=== PATIENT | male | born 1950 | race Asian ===

== ENCOUNTER 2016-10-30 00:57 | Inpatient (IN) | payer OTHER ==
[~2016-10-30] VITALS: Ht 165.1 cm; Wt 79.4 kg
[2016-10-30 01:58] LABS: BASOPHIL % 0.5 % (0-2); PLATELET COUNT 218 x10^3mcL (130-400); RED CELL DISTRIBUTION WIDTH 13.3 % (11.5-14.5)
[2016-10-30 02:13] LABS: CALCIUM 8.5 mg/dL (8.5-10.1); CARBON DIOXIDE 22.8 mmol/L (21-32); CHLORIDE SERUM 106 mmol/L (98-107); CREATININE SERUM 1.2 mg/dL (0.7-1.3); GFR1 > 60 mL/min; GLUCOSE SERUM 134 mg/dL (74-106); POTASSIUM SERUM 3.5 mmol/L (3.5-5.1); SODIUM SERUM 140 mmol/L (136-145)
[2016-10-30 02:17] LABS: ALBUMIN 3.4 g/dL (3.4-5.0); ALKALINE PHOSPHATASE 71 U/L (46-116); ALT/SGPT 41 U/L (16-63); AST/SGOT 26 U/L (15-37); BILIRUBIN TOTAL 0.26 mg/dL (0.20-1.00)
[2016-10-30] MEDS ORDERED: TAMSULOSIN HYD0.4 M1 PO (03:05)
[2016-10-30] MEDS ORDERED: [UNRECOGNIZED DRUG - CODE] PO (03:05)
[2016-10-30] MEDS ORDERED: ENALAPRIL MALEA20 MG PO (03:06)
[2016-10-30] MEDS ORDERED: SIMVASTATIN20 M1 PO (03:06)
[2016-10-30] MEDS ORDERED: ASPIR 8181 MG PO (03:07)
[2016-10-30 03:44] VITALS: BP 180/76
[2016-10-30 04:41] LABS: FREE T4 1.25 ng/dL (0.76-1.46); FREE THYROXINE INDEX 2.9 ug/dL (1.4-4.5); T4(THYROXINE) 8.1 ug/dL (4.7-13.3)
[2016-10-30 04:46] LABS: T3 TOTAL 1.24 ng/mL
[2016-10-30 04:53] LABS: CHOLESTEROL/HDL RATIO 2.3
[2016-10-30 07:07] VITALS: BP 180/60
[2016-10-30 08:47] VITALS: Ht 165.1 cm; Wt 79.4 kg
[2016-10-30 09:24] LABS: microscopic required? YES; urine erythrocyte TRACE (NEGATIVE)
[2016-10-30 09:27] LABS: AMPHETAMINE QUAL UR NONE DETECTED (NEG <=1000)
[2016-10-30 09:47] LABS: MAGNESIUM 2.1 mg/dL (1.8-2.4); PHOSPHOROUS 2.3 mg/dL (2.5-4.9)
[2016-10-30 09:56] VITALS: BP 136/68
[2016-10-30 14:00] VITALS: BP 129/71
[2016-10-30 18:41] VITALS: BP 123/69
[2016-10-30 21:44] VITALS: BP 151/76
[2016-10-31 06:06] VITALS: BP 140/74
[2016-10-31 06:17] LABS: BASOPHIL % 0.4 % (0-2); PLATELET COUNT 210 x10^3mcL (130-400); RED CELL DISTRIBUTION WIDTH 13.3 % (11.5-14.5)
[2016-10-31 06:35] LABS: CALCIUM 8.4 mg/dL (8.5-10.1); CARBON DIOXIDE 26.7 mmol/L (21-32); CHLORIDE SERUM 110 mmol/L (98-107); GFR1 > 60 mL/min; GLUCOSE SERUM 97 mg/dL (74-106); MAGNESIUM 1.9 mg/dL (1.8-2.4); PHOSPHOROUS 2.7 mg/dL (2.5-4.9); POTASSIUM SERUM 3.7 mmol/L (3.5-5.1); SODIUM SERUM 143 mmol/L (136-145)
[2016-10-31 09:57] VITALS: BP 149/82
[2016-10-31 11:35] VITALS: BP 149/82
[2016-10-31] MEDS ORDERED: MECLIZINE HCL12.5 MG PO (12:01)
[2016-10-31] MEDS ORDERED: ZOF4 PO (12:02)
== END 2016-10-31 14:42 | disposition home or self-care (01) | DRG 48 ==
LOC: ED 00:57 → DU 02:48
PROVIDERS: Emergency Medicine; ADMIT Family Medicine
DX: G90.9 Disorder of the autonomic nervous system, unspecified (principal); N17.0 Acute kidney failure with tubular necrosis; I10 Essential (primary) hypertension; E78.00 Pure hypercholesterolemia, unspecified; N40.0 Benign prostatic hyperplasia without lower urinary tract symptoms; Z53.29 Procedure and treatment not carried out because of patient's decision for other reasons; I16.0 Hypertensive urgency; E87.8 Other disorders of electrolyte and fluid balance, not elsewhere classified; D64.9 Anemia, unspecified; Z79.82 Long term (current) use of aspirin; Z68.26 Body mass index [BMI] 26.0-26.9, adult; Z79.899 Other long term (current) drug therapy
CPT/HCPCS: 83880; 84439; G0480; J2550; J7030; Q0092